=== PATIENT | female | born 1980 | race Caucasian/White ===

== ENCOUNTER 2023-08-12 10:41 | Emergency (ER) | payer SELFPAY ==
[~2023-08-12] VITALS: Ht 165.1 cm; Wt 70.0 kg
[2023-08-12 10:45] VITALS: BP 136/80; O2SAT 97
[2023-08-12] MEDS ORDERED: ACETAMINOPHEN 325MG TABLET PO ONE (12:00)
[2023-08-12] MEDS ORDERED: METHOCARBAMOL 500MG TABLET PO ONE (12:00)
[2023-08-12] MEDS ORDERED: LIDO700A15 TP (13:46)
[2023-08-12] MEDS ORDERED: NAPR-1176 MT (13:46)
[2023-08-12 14:16] VITALS: PULSE 90; RESP 16; TEMP 98.4
== END 2023-08-12 14:17 | disposition home or self-care (01) ==
LOC: ER 10:41
DX: R51.9 Headache, unspecified (principal); M54.2 Cervicalgia; V89.2XXA Person injured in unspecified motor-vehicle accident, traffic, initial encounter; Y93.89 Activity, other specified; Y92.89 Other specified places as the place of occurrence of the external cause; Y99.8 Other external cause status
CPT/HCPCS: 73030; 81025; 99283